=== PATIENT | female | born 1980 | race Caucasian/White ===

== ENCOUNTER 2017-11-19 16:28 | Emergency (ER) | payer SELFPAY ==
[2017-11-19 16:33] VITALS: BP 136/75; BMI 36.1
--- NOTE | 2017-11-19 18:03 | RAD ---
Two views of the chest Indication: Cough Comparison: None Conclusion: Cardiac heart size and pulmonary vasculature within normal limits. The lungs are clear an d there is no pleural effusion. Reported By:
--- NOTE | 2017-11-19 18:13 | DR.GENAD ---
HPI - PCP Primary Care Physician: [facility] - Complaint/Symptoms Chief Complaint Doctors Comments: Patient reports that her doctor called in antibiotics earlier in the week for her to take. She reports that she has flu like symptoms but is concerned about getting pneumonia. Chief Complaint:: PT. STATED ON THURSDAY SHE HAD FEVER, CHILLS, BODY ACHES. PT. HAS NOT HAD A FEVER SINCE YESTERDAY BUT PT. STATES THE CHILLS HAVE STARTED BACK TODAY. PT. IS ALSO STILL HAVING A COUGH AND BACK PAIN. - Source History Provided: Patient - Mode of Arrival Mode of Arrival: Ambulatory - Timing Onset of Chief Complaint: 11/17/17 PMH - PMH Past Medical History: Yes Past Medical History: Hypertension Past Medical History Comment: HYPOKALEMIA Past Surgical History: Yes Surgical History: , [employer] Surgery Past Surgical History Comment: TUBAL LIGATION - Family History History of Family Medical Conditions: No - Social History Does patient currently use any type of tobacco product: Yes Have you used tobacco products in the last 12 months: Yes Type of Tobacco Use: Cigarettes Does any household member use tobacco: No Alcohol Use: None Do you use any recreational Drugs:: No Lives With: Family Lives Where: Home - infectious screening In the last 2 months have you had wt loss of >10#?: NO Have you had fever, night sweats or hemotysis?: No Have you traveled outside the country in the last 6 months?: No Isolation: Standard ROS - Review of Systems Eyes: No Symptoms Reported ENTM: No Symptoms Reported Respiratoy: No Symptoms Reported Cardiovascular: No Symptoms Reported Gastrointestinal/Abdominal: No Symptoms Reported Genitourinary: No Symptoms Reported Neurological: No Symptoms Reported Musculoskeletal: No Symptoms Reported Integumentary: No Symptoms Reported Hematologic/Lymphatic: No Symptoms Reported Endocrine: No Symptoms Reported Psychiatric: No Symptoms Reported All Other Systems: Reviewed and Negative PE - Vital Signs Vitals: Temperature 97.4 F Pulse Rate 83 Respiratory Rate 20 Blood Pressure 136/75 O2 Sat by Pulse Oximetry 97 - General Limitations: No Limitations General Appearance: Alert, In No Apparent Distress - Head Head Exam: Normal Inspection, Atraumatic - Eyes Eye exam: Normal Appearance, PERRL, EOMI - ENT ENT Exam: Normal Exam External Ear Exam: Normal External Inspection TM/Canal Exam: Bilateral Normal Nose Exam: Normal Nose Exam, Sinus Tenderness Mouth Exam: Normal Inspection Throat Exam: Normal Inspection - Neck Neck Exam: Normal Inspection, Full ROM - Chest Chest Inspection: Normal Inspection - Respiratory Respiratory Exam: Normal Lung Sounds Bilat Respiratory Exam: Bilateral Clear to Auscultation - Cardiovascular Cardiovascular Exam: Regular Rate, Normal Rhythm - Abdominal Exam Abdominal Exam: Normal Inspection, Normal Bowel Sounds Abdominal Tenderness: negative: RUQ, RLQ, LUQ, LLQ, Epigastrium, Suprapubic, Diffuse, Mild, Moderate, Severe, Other - Extremities Extremities Exam: Normal Inspection, Full ROM - Back Back Exam: Normal Inspection, Full ROM - Neurologic Neurological Exam: Alert, Oriented X3, CN II-XII Intact - Psychiatric Psychiatric Exam: Normal Affect - Skin Skin Exam: Warm, Dry, Intact Course - Reevaluation 1st: Unchanged ROR - Labs Reviewed Laboratory Results Reviewed?: Yes (influenza & strep negative) Laboratory: Influenza Type A (PCR) Negative (NEGATIVE) 11/19/17 17:45 Influenza Type B (PCR) Negative (NEGATIVE) 11/19/17 17:45 S. pyogenes (TEM-PCR) Not detected (NOT DETECT) 11/19/17 17:45 - XRAY XRAY Interpreted by: Radiologist (Chest: no cardiopulmonary disease) - Diagnosis Discharge Problem: Upper respiratory infection Qualifiers: URI type: unspecified viral URI Qualified Code(s): J06.9 - Acute upper respiratory infection, unspecified - Discharge Plan Condition: Stable - Follow ups/Referrals Follow ups/Referrals: NFD,None [Primary Care Provider] - 3 days - Instructions
== END 2017-11-19 18:44 | disposition home or self-care (01) ==
LOC: ER 16:37
DX: J06.9 Acute upper respiratory infection, unspecified (principal)
CPT/HCPCS: 71046; 87502; 87651; 99282